=== PATIENT | female | born 1975 | race Asian ===

== ENCOUNTER 2021-04-09 17:05 | Emergency (ER) | payer SELFPAY ==
[~2021-04-09] VITALS: Ht 152.4 cm; Wt 54.5 kg
[2021-04-09 17:26] VITALS: BP 120/80
== END 2021-04-09 21:25 ==
LOC: ER 17:05
DX: F15.10 Other stimulant abuse, uncomplicated (principal); F17.290 Nicotine dependence, other tobacco product, uncomplicated
CPT/HCPCS: 99283; 99406